=== PATIENT | female | born 1960 | race Hispanic/Latino ===

== ENCOUNTER → 2020-02-24 | Outpatient (CLI) | payer MEDICARE ==
--- NOTE | 2020-02-24 15:12 | Diagnostic Imaging Report ---
Examination: MRI BRAIN WO CONTRAST History: Blurred vision. Vertigo. Imbalance. Comparison studies: None Technique: Sagittal T2; axial DWI, FLAIR, GRE or SWI, T1, Coronal FLAIR. Intravenous contrast: None Findings: Scalp: No abnormal signal. No masses. Bone marrow: Normal in signal intensity. Brain volume: Adequate for age. No volume loss. Ventricles: The ventricular size is out of proportion with respect to cerebral convexity sulci, concerning for a communicating type of hydrocephalus, such as normal pressure hydrocephalus. Extra-axial spaces: No abnormalities. Parenchyma: There are patchy and punctate areas of T2/FLAIR hyperintensity in the periventricular and subcortical white matter, nonspecific. Chronic lacunar infarcts identified in the bilateral cerebellar hemispheres No masses, hemorrhage, acute or chronic vascular insults. Suprasellar and sellar region: No abnormalities. Craniocervical junction: No abnormalities. The foramen magnum is patent. No Chiari malformations. Vessels: Normal flow-voids in the arteries and sinuses. Additional findings:Bilateral slitlike orbital lenses. Incomplete fat suppression of the partially visualized C4 vertebral body. IMPRESSION: No acute intracranial abnormalities. Findings as described above can be seen in normal pressure hydrocephalus. Mild chronic microvascular ischemic change. Chronic lacunar infarcts in the bilateral cerebellar hemispheres.. Signed by: Dr. Bibiana Stephens M.D. on 02/24/2020 3:09 PM
--- NOTE | 2020-02-24 15:14 | Diagnostic Imaging Report ---
Examination: MRA HEAD WO, MRA NECK WO CONTRAST History: Vertigo. Balance. Blurred vision. Comparison studies: None Technique: 2-D and 3-D [id number] MR angiograms of the cervical and intracranial circulations were obtained. MIP images of the arteries were isolated into the right and left cervical circulations and anterior and posterior intracranial circulations, 180 degree projections. Sagittal and coronal MPR images, and axial source images are available for evaluation. Degree of stenosis at the carotid bulbs, if present, will be calculated using NASCET criteria where the smallest diameter at the location of stenosis is compared to the diameter of the more distal non-diseased vessel lumen. Findings: Cervical MRA Aortic arch: Normal 3 great vessel origin. Patent. Internal carotid arteries: No flow abnormalities at the origins of the common carotid arteries, the cervical carotid bifurcations or in the cervical segments. Vertebral arteries: No flow abnormalities at the origins of the vertebral arteries or through its cervical segments (V1-V3). Intracranial MRA: Internal carotid arteries: Patent.. Anterior cerebral arteries: Patent A1 and A2 segments.. Middle cerebral arteries: Patent M1 and M2 segments.. Vertebrobasilar circulation: Patent. Posterior cerebral arteries: Patent bilateral P1 and P2 segments.. Anatomical variants: Anterior communicating arteries: Patent. Posterior communicating arteries: Not visualized. Vertebral arteries:Codominant. IMPRESSION: No cervical or intracranial arterial stenosis or occlusion or vascular malformation. Signed by: Dr. Bibiana Stephens M.D. on 02/24/2020 3:10 PM
== END ==
LOC: MRI 12:18
DX: R42 Dizziness and giddiness (principal); R26.81 Unsteadiness on feet; H53.8 Other visual disturbances
CPT/HCPCS: 70544; 70547; 70551

== ENCOUNTER 2024-10-12 14:26 | Emergency (ER) | payer MEDICARE ==
[~2024-10-12] VITALS: Ht 152.4 cm; Wt 53.5 kg
[2024-10-12 14:47] VITALS: PULSE 58; RESP 18; TEMP 97.6; O2SAT 100
== END 2024-10-12 16:35 | disposition home or self-care (01) ==
LOC: ER 14:35
DX: M25.521 Pain in right elbow (principal); M71.521 Other bursitis, not elsewhere classified, right elbow; M25.421 Effusion, right elbow; I10 Essential (primary) hypertension; E11.9 Type 2 diabetes mellitus without complications; I50.9 Heart failure, unspecified; Z94.0 Kidney transplant status
CPT/HCPCS: 99283

== ENCOUNTER 2024-10-30 15:25 | Emergency (ER) | payer MEDICARE ==
[~2024-10-30] VITALS: Ht 152.4 cm; Wt 53.5 kg
[2024-10-30] MEDS ORDERED: ACETAMINOPHEN 325 MG TAB ONE (18:12)
[2024-10-30] MEDS: ACETAMINOPHEN 325 MG TAB PO ONE (18:16)
[2024-10-30 18:56] VITALS: PULSE 62; RESP 17; TEMP 97.8
[2024-10-30] MEDS ORDERED: ULTRAM 50MG50 MG PO (19:08)
[2024-10-30] MEDS ORDERED: ONDANSETRON ODT4 MG SL (19:09)
[2024-10-30 19:58] VITALS: BP 177/59; PULSE 79; RESP 17; TEMP 98.5; O2SAT 100
== END 2024-10-30 20:38 | disposition home or self-care (01) ==
LOC: ER 16:11
DX: S62.657A Nondisplaced fracture of middle phalanx of left little finger, initial encounter for closed fracture (principal); S93.492A Sprain of other ligament of left ankle, initial encounter; W01.0XXA Fall on same level from slipping, tripping and stumbling without subsequent striking against object, initial encounter; Y93.01 Activity, walking, marching and hiking; Y92.89 Other specified places as the place of occurrence of the external cause; I10 Essential (primary) hypertension; E11.9 Type 2 diabetes mellitus without complications; I50.9 Heart failure, unspecified; Z94.0 Kidney transplant status
CPT/HCPCS: 99284